=== PATIENT | male | born 1990 | race Hispanic/Latino ===

== ENCOUNTER 2024-05-05 16:31 | Emergency (ER) | payer SELFPAY ==
[2024-05-05 17:27] LABS: Specific Gravity 1.021 (1.005-1.030); Sqamous Epithelial <5 /HPF (None Seen); Urine Bacteria <20 /HPF (<20); Urine Bilirubin NEGATIVE (Negative); Urine Blood Negative (Negative); Urine Clarity Extremely Turbid (Clear); Urine Color Light-Orange (Yellow); Urine Crystals Unidentified Moderate /HPF (None Seen); Urine Culture Reflex Order REFLEXED; Urine Glucose NEGATIVE (Negative); Urine Ketones NEGATIVE (Negative); Urine Microscopic Reflex YN ORDER UMIC; Urine Nitrite NEGATIVE (Negative); Urine Protein NEGATIVE (Negative); Urine RBC <5 /HPF (None Seen); Urine Urobilinogen Normal (Normal); Urine WBC 20-50 /HPF (<5); Urine Yeast (Budding) Occasional /HPF (None Seen); Urine pH 7.5 (5.0-7.0)
--- NOTE | 2024-05-05 18:20 | RAD REPORT ---
EXAMINATION: Stone Protocol CLINICAL INDICATION: Male, 33 years old. FLANK PAIN TECHNIQUE: CT abdomen and pelvis was performed, without IV contrast, as per department protocol. Axia l, sagittal and coronal reconstructions were obtained. One or more of the following dose reduction techniques were used: Automated exposure control, adjustment of the mA and kV according to the patien t size, and iterative reconstruction. Unless otherwise specified, incidental findings do not require dedicated imaging follow-up. COMPARISON: No prior exam. FINDINGS: The lack of intravenous contrast limits the sensitivity of this exam for evaluation of solid visceral organs, vascular structures, and retroperitoneum. LOWER CHEST: The visualized lung bases are clear. LIVER: Normal in size and contour. Pronounced parenchymal hypoattenuation throughout the liver sugges ting steatosis, with areas of fatty sparing near the gallbladder bed. No focal lesion. BILIARY SYSTEM: Suboptimal distention of the urinary bladder which limits evaluation. SPLEEN: Normal size. No focal lesion. PANCREAS: No mass, ductal dilation, or moises-pancreatic fluid. ADRENALS: Lobulated fat-containing right adrenal mass measuring 4.1 x 7.0 cm, most compatible with a myelolipoma. No suspicious left adrenal masses. KIDNEYS AND URETERS: Normal size and contour. No hydronephrosis. URINARY BLADDER: Normal contour. GASTROINTESTINAL TRACT: No evidence of bowel obstruction, significant free fluid, free air or abscess . APPENDIX: Normal appendix. LYMPH NODES: No lymphadenopathy. MUSCULOSKELETAL: No acute or suspicious osseous abnormality. ADDITIONAL FINDINGS: None. IMPRESSION: No acute intra-abdominal process within limits of lack of IV contrast. Large right adrenal 7 cm myelolipoma. Diffuse hepatic steatosis.
--- NOTE | 2024-05-05 18:53 | ER ---
Nurse's Notes [facility] Name: Eber Drummond Age: 33 yrs Sex: Male : 1990 Arrival Date: 05/05/2024 Time: 16:31 Bed 14 Private MD: Diagnosis: Left Flank Pain Presentation: 05/05 16:49 Chief complaint: Patient states: he has been having left lower back pain that is a ap3 "pinching" feeling that has been going on for "several months". patient states he believes to have been related to his work, but when he was talking to his friend his friend told him he had blood in his mouth and the patient is unsure if it is all related. patient currently rates his pain as a 9/10 on the pain scale. Coronavirus screen: At this time, the client does not indicate any symptoms associated with coronavirus-19. Ebola Screen: No symptoms or risks identified at this time. Initial Sepsis Screen: Does the patient meet any 2 criteria? No. Patient's initial sepsis screen is negative. Does the patient have a suspected source of infection? No. Patient's initial sepsis screen is negative. Risk Assessment: Do you want to hurt yourself or someone else? Patient reports no desire to harm self or others. Onset of symptoms is unknown. 16:49 Method Of Arrival: Ambulatory ap3 16:52 Acuity: JADA 4 ap3 Triage Assessment: 16:51 General: Appears in no apparent distress. Behavior is calm, cooperative, appropriate ap3 for age. Pain: Complains of pain in left low back Pain currently is 9 out of 10 on a pain scale. Neuro: Level of Consciousness is awake, alert, obeys commands, Oriented to person, place, time, situation, Appropriate for age. Cardiovascular: Patient's skin is warm and dry. Respiratory: Airway is patent Respiratory effort is even, unlabored, Respiratory pattern is regular, symmetrical. Historical: - Allergies: 16:51 No Known Allergies; ap3 - Home Meds: 16:51 None [Active]; ap3 - PMHx: 16:51 None; ap3 - Immunization history:: Client reports receiving the 2nd dose of the Covid vaccine. - Infectious Disease History:: Denies. - Social history:: Smoking status: Patient reports the use of cigarette tobacco products, denies chronic smoking, but will smoke occasionally. Screenin:52 [facility] ED Fall Risk Assessment (Adult) History of falling in the last 3 months, ap3 including since admission No falls in past 3 months (0 pts) Confusion or Disorientation No (0 pts) Intoxicated or Sedated No (0 pts) Impaired Gait No (0 pts) Mobility Assist Device Used No (0 pt) Altered Elimination No (0 pt) Score/Fall Risk Level 0 - 2 = Low Risk Oriented to surroundings, Maintained a safe environment, Educated pt \\T\\ family on fall prevention, incl call for assistance when getting out of bed, Assessed \\T\\ reinforced patient's understanding of fall precautions, Hourly rounding (assess needs \\T\\ fall precautionary measures) done, Used ambulatory aids as needed (educated on \\T\\ assisted with), Used gait belt as appropriate. Abuse screen: Denies threats or abuse. Nutritional screening: No deficits noted. Tuberculosis screening: No symptoms or risk factors identified. Assessment: 17:00 General: Appears in no apparent distress. uncomfortable, Behavior is calm, cooperative. rs5 Pain: Complains of pain in left low back Pain currently is 4 out of 10 on a pain scale. Quality of pain is described as aching, Is continuous. Neuro: Level of Consciousness is awake, alert, obeys commands, Oriented to person, place, time, situation. Cardiovascular: Patient's skin is warm and dry. Respiratory: Airway is patent Respiratory effort is even, unlabored, Respiratory pattern is regular, symmetrical. GI: Abdomen is round non-distended, Abd is soft and non tender X 4 quads. :. EENT: No signs and/or symptoms were reported regarding the EENT system. Derm: Skin is intact, Skin is pink, warm \\T\\ dry. Skin temperature is warm. Derm: Musculoskeletal: Range of motion: intact in all extremities. Vital Signs: 16:49 Pulse 94; Resp 17; Temp 97.4; Pulse Ox 100% ; Weight 131.09 kg; Height 6 ft. 2 in. ; ap3 Pain 9/10; 16:52 BP 135 / 88; ap3 18:56 BP 137 / 90; Pulse 80; Resp 17; Pulse Ox 99% on R/A; rs5 16:49 Body Mass Index 37.11 (131.09 kg, 187.96 cm) ap3 16:49 Pain Scale: Adult ap3 ED Course: 16:37 Patient arrived in ED. mg5 16:37 Jewles Valles FNP-C is [facility]. kb 16:37 Raymon Chacon MD is Attending Physician. kb 16:52 Triage completed. ap3 16:52 Arm band placed on right wrist. ap3 16:55 Patient has correct armband on for positive identification. Bed in low position. Call rs5 light in reach. Side rails up X2. 17:42 CT Stone Protocol In Process Unspecified. EDMS 18:42 Jalen Goodrich, RN is Primary Nurse. rs5 18:55 No provider procedures requiring assistance completed. Patient did not have IV access rs5 during this emergency room visit. 18:56 Provided Education on: discharge instructions. rs5 Administered Medications: No medications were administered Medication: 18:56 VIS not applicable for this client. rs5 Outcome: 18:52 Discharge ordered by . kb 18:56 Discharged to home ambulatory, rs5 18:56 Condition: stable 18:56 Discharge instructions given to patient, family, Instructed on discharge instructions, follow up and referral plans. Demonstrated understanding of instructions, follow-up care, 19:01 Patient left the ED. rs5 Signatures: Dispatcher [employer] EDRI Jewels Valles FNP-C FNP-Ckb Prokisch, Amanda RN RN ap3 Jalen Goodrich, RN RN rs5 Cristin Burton mg5
--- NOTE | 2024-05-05 18:53 | EDPHYS ---
Physician Documentation [facility] Name: Eber Drummond Age: 33 yrs Sex: Male : 1990 Arrival Date: 05/05/2024 Time: 16:31 Bed 14 Private MD: ED Physician Raymon Chacon HPI: 05/05 19:42 This 33 yrs old Male presents to ER via Ambulatory with complaints of Low Back kb Pain. 19:42 Pt is a 33 year old male who presents for left flank pain that has been intermittent kb for 3 months and has gotten worse. Also reports he was talking to a coworker 2 days ago and started bleeding from his mouth. States he is not sure where the blood was coming from. Denies n/v/d, urinary symptoms, abd pain, fever. States he came in because he needs a note to return to work. Historical: - Allergies: 16:51 No Known Allergies; ap3 - Home Meds: 16:51 None [Active]; ap3 - PMHx: 16:51 None; ap3 - Immunization history:: Client reports receiving the 2nd dose of the Covid vaccine. - Infectious Disease History:: Denies. - Social history:: Smoking status: Patient reports the use of cigarette tobacco products, denies chronic smoking, but will smoke occasionally. ROS: 19:42 Constitutional: As per HPI kb Exam: 19:42 Constitutional: This is a well developed, well nourished patient who is awake, alert, kb and in no acute distress. Head/Face: Normocephalic, atraumatic. ENT: Moist Mucous membranes Cardiovascular: Regular rate Respiratory: Respirations even and unlabored. No increased work of breathing. Talking in full sentences Abdomen/GI: Soft, non-tender. No distention Skin: Warm, dry with normal turgor. Normal color. MS/ Extremity: Pulses equal, no cyanosis. Neurovascular intact. Full, normal range of motion. Neuro: Awake and alert, GCS 15, oriented to person, place, time, and situation. 19:42 ENT: Mouth: is normal, 19:42 Back: pain, that is moderate, of the left mid back, Vital Signs: 16:49 Pulse 94; Resp 17; Temp 97.4; Pulse Ox 100% ; Weight 131.09 kg; Height 6 ft. 2 in. ; ap3 Pain 9/10; 16:52 BP 135 / 88; ap3 18:56 BP 137 / 90; Pulse 80; Resp 17; Pulse Ox 99% on R/A; rs5 16:49 Body Mass Index 37.11 (131.09 kg, 187.96 cm) ap3 16:49 Pain Scale: Adult ap3 MDM: 16:37 Medical Screening Exam initiated kb 19:43 Differential diagnosis: nephrolithiasis, pyelonephritis, UTI. Data reviewed: vital kb signs, nurses notes. Counseling: I had a detailed discussion with the patient and/or guardian regarding the historical points, exam findings, and any diagnostic results supporting the discharge/admit diagnosis, lab results, radiology results, the need for outpatient follow up, a family practitioner, to return to the emergency department if symptoms worsen or persist or if there are any questions or concerns that arise at home. 05/05 16:57 Order name: Urinalysis w/ reflexes; Complete Time: 17:32 kb 05/05 17:32 Order name: Urine Culture [facility] 05/05 16:57 Order name: CT Stone Protocol; Complete Time: 18:21 kb Administered Medications: No medications were administered Disposition Summary: 05/05/24 18:52 Discharge Ordered Notes: Location: Home kb Condition: Stable kb Diagnosis - Left Flank Pain kb Followup: kb - With: Emergency Department - When: As needed - Reason: Worsening of condition Followup: kb - With: Private Physician - When: 2 - 3 days - Reason: Recheck today's complaints, Continuance of care, Re-evaluation by your physician Discharge Instructions: - Discharge Summary Sheet kb - Flank Pain, Adult, [id number] kb Forms: - Work release form kb - Medication Reconciliation Form kb - Antibiotic Education kb - Prescription Opioid Use kb - Patient Portal Instructions kb - Leadership Thank You Letter kb Signatures: Dispatcher [employer] Jewels Lewis, Li Babb RN RN ap3 Corrections: (The following items were deleted from the chart) 19:44 19:42 Pt is a 33 year old male who presents for left flank pain that has been kb intermittent for 3 months and has gotten worse. Also reports he was talking to a coworker 2 days ago and started bleeding from his mouth. States he is not sure where the blood was coming from. Denies n/v/d, urinary symptoms, abd pain, fever. . kb
[2024-05-05 21:39] VITALS: TEMP 97.4
[2024-05-05 21:42] VITALS: BP 137/90; O2SAT 99
== END 2024-05-05 19:01 | disposition home or self-care (01) ==
LOC: ER 16:31
DX: R10.32 Left lower quadrant pain (principal); F17.210 Nicotine dependence, cigarettes, uncomplicated
CPT/HCPCS: 74176; 76377; 81001; 87086; 87088; 99282